=== PATIENT | female | born 1995 | race Caucasian/White ===

== ENCOUNTER 2016-09-16 16:08 | Emergency (ER) | payer OTHER ==
[~2016-09-16] VITALS: Ht 165.1 cm; Wt 90.7 kg
[~2016-09-16 16:08] MED LIST: AMOXICILLIN500 MG ORAL; LITHIUM CARBON300 MG ORAL; MINIPRESS1 MG PO; NORCO 5-325 TA1 EAC1 ORAL; PROMETHAZINE-D118 ML ORAL; SEROQUEL300 MG ORAL; SEROQUEL50 MG ORAL; SILVADENE CREAM50 GM TOP
[2016-09-16] MEDS ORDERED: MINIPRESS1 MG PO (16:15)
[2016-09-16] MEDS ORDERED: SERTRALINE HCL100 MG PO (16:15)
[2016-09-16] MEDS ORDERED: SEROQUEL200 MG ORAL (16:15)
[2016-09-16] MEDS ORDERED: DiphenhydrAMINE 50mg/ml Inj IVP ONE (16:15)
[2016-09-16] MEDS ORDERED: Solu-MEDROL 125mg Inj IVP ONE (16:15)
[2016-09-16 16:18] VITALS: BP 118/57
[2016-09-16 16:44] LABS: BASOPHILS % (AUTO) 0.8 % (0.0-2.0); EOSINOPHILS % (AUTO) 0.9 % (0.0-3.0); MEAN CORPUSCULAR HGB CONC 34.6 G/DL (32.0-36.0); MEAN CORPUSCULAR VOLUME 81 FL (80-99); MEAN PLATELET VOLUME 7.5 FL (6.5-10.1); MONOCYTES % (AUTO) 4.9 % (1.0-10.0); NEUTROPHILS % (AUTO) 64.5 % (45.0-75.0); PLATELET COUNT 221 K/UL (150-450); RED BLOOD COUNT 5.38 M/UL (4.20-5.40); RED CELL DISTRIBUTION WIDTH 11.1 % (11.6-14.8); WHITE BLOOD COUNT 9.7 K/UL (4.8-10.8)
[2016-09-16 17:01] LABS: TROPONIN I < 0.30 ng/mL (<=0.30)
[2016-09-16 17:03] LABS: ALANINE AMINOTRANSFERASE 11 U/L (3-33); ALBUMIN/GLOBULIN RATIO 1.6 (1.0-2.7); ANION GAP 14 (5-15); ASPARTATE AMINO TRANSFERASE 12 U/L (5-40); CARBON DIOXIDE 25 mEQ/L (20-30); CHLORIDE 100 mEQ/L (98-107); CREATININE 0.9 mg/dL (0.5-0.9); GLOMERULAR FILTRATION RATE > 60 mL/min (>60); HEMOLYSIS 17; POTASSIUM 4.3 mEQ/L (3.4-4.9); SODIUM 139 mEQ/L (135-145); TOTAL PROTEIN 6.6 g/dL (6.6-8.7)
[2016-09-16 17:30] VITALS: BP 105/88
[2016-09-16] MEDS ORDERED: SEROQUEL400 MG ORAL (18:22)
[2016-09-16] MEDS ORDERED: BENADRYL25 MG ORAL (18:22)
[2016-09-16] MEDS ORDERED: PREDNISONE20 MG ORAL (18:22)
[2016-09-16 18:28] VITALS: BP 103/57
--- NOTE | 2016-09-16 18:45 | Emergency Room Report ---
History of Present Illness General Chief Complaint: Allergic Reaction Source: Patient, Medical Record Present Illness HPI Patient presents with allergic reaction. For 3 hours her skin is to red and it' s itchy. She denies any shortness of breath nausea or dizziness. She's never been allergic to anything before. No new soaps, strange foods, exposure to animals, insect stings. No fever, URI, dysuria, joint pain, MANN, change in vision. No swelling of her throat or difficulty swallowing. H/O bipolar disorder. States stable and no SI or HI. Sober since last visit with me. She states she gets anxious and is concerned about other possible infectious causes of her rash (bed bugs, scabies). Allergies: Uncoded Allergies: BANANAS (Allergy, Mild, 12/10/15) Patient History Past Medical History: see triage record Social History: Reports: smoking Social History Narrative apartment by self Reviewed Nursing Documentation: PMH: Agreed, PSxH: Agreed Nursing Documentation-PMH Past Medical History: No History, Except For Review of Systems All Other Systems: negative except mentioned in HPI Physical Exam Vital Signs Date Time Temp Pulse Resp B/P Pulse Ox O2 Delivery O2 Flow Rate FiO2 09/16/16 16:08 97.9 80 16 115/80 99 Room Air Sp02 EP Interpretation: reviewed, normal General Appearance: well appearing, no apparent distress, GCS 15 Head: normocephalic Eyes: bilateral eye PERRL, bilateral eye normal inspection ENT: normal pharynx, no angioedema, moist mucus membranes, other - piercings Neck: full range of motion, supple Respiratory: chest non-tender, lungs clear, normal breath sounds Cardiovascular #1: regular rate, rhythm Cardiovascular #2: 2+ radial (R) Gastrointestinal: normal inspection, normal bowel sounds, non tender, no mass, non-distended Musculoskeletal: back normal, gait/station normal, normal range of motion Neurologic: alert, oriented x3, grossly normal Psychiatric: mood/affect normal, no suicidal/homicidal ideation Skin: warm/dry, rash - erythroderma more upper chest and extremities, minimal LE Medical Decision Making Diagnostic Impression: Primary Impression: Allergic reaction Qualified Codes: T78.40XA - Allergy, unspecified, initial encounter Additional Impression: Bipolar disorder Qualified Codes: F31.77 - Bipolar disorder, in partial remission, most recent episode mixed ER Course Patient with rash and itching. Ddx; allergic reaction, contact dermatitis, walters, medication reaction, urticaria. No evidence of scalded skin or Cyril Marcello syndrome. Labs indicated as is CXR. Labs unremarkable. Patient improved with treatment. She requests seroquel as won't see psych until 09/21. Patient stable for outpatient observation and treatment. Laboratory Tests Test 09/16/16 16:20 09/16/16 16:43 White Blood Count 9.7 K/UL (4.8-10.8) Red Blood Count 5.38 M/UL (4.20-5.40) Hemoglobin 15.1 G/DL (12.0-16.0) Hematocrit 43.6 % (37.0-47.0) Mean Corpuscular Volume 81 FL (80-99) Mean Corpuscular Hemoglobin 28.0 PG (27.0-31.0) Mean Corpuscular Hemoglobin Concent 34.6 G/DL (32.0-36.0) Red Cell Distribution Width 11.1 % (11.6-14.8) L Platelet Count 221 K/UL (150-450) Mean Platelet Volume 7.5 FL (6.5-10.1) Neutrophils (%) (Auto) 64.5 % (45.0-75.0) Lymphocytes (%) (Auto) 29.0 % (20.0-45.0) Monocytes (%) (Auto) 4.9 % (1.0-10.0) Eosinophils (%) (Auto) 0.9 % (0.0-3.0) Basophils (%) (Auto) 0.8 % (0.0-2.0) Sodium Level 139 mEQ/L (135-145) Potassium Level 4.3 mEQ/L (3.4-4.9) Chloride Level 100 mEQ/L (98-107) Carbon Dioxide Level 25 mEQ/L (20-30) Anion Gap 14 (5-15) Blood Urea Nitrogen 12 mg/dL (7-23) Creatinine 0.9 mg/dL (0.5-0.9) Estimate Glomerular Filtration Rate > 60 mL/min (>60) Glucose Level 135 mg/dL (74-106) H Calcium Level 9.0 mg/dL (8.6-10.2) Total Bilirubin 0.3 mg/dL (0.0-1.2) Aspartate Amino Transferase (AST) 12 U/L (5-40) Alanine Aminotransferase (ALT) 11 U/L (3-33) Alkaline Phosphatase 49 U/L (35-104) Total Creatine Kinase 53 U/L (26-140) Troponin I < 0.30 ng/mL (<=0.30) Total Protein 6.6 g/dL (6.6-8.7) Albumin 4.1 g/dL (3.5-5.2) Globulin 2.5 g/dL Albumin/Globulin Ratio 1.6 (1.0-2.7) Urine HCG, Qualitative Negative Urine Opiates Screen Negative (NEGATIVE) Urine Barbiturates Screen Negative (NEGATIVE) Phencyclidine (PCP) Screen Negative (NEGATIVE) Urine Amphetamines Screen Negative (NEGATIVE) Urine Benzodiazepines Screen Negative (NEGATIVE) Urine Cocaine Screen Negative (NEGATIVE) Urine Marijuana (THC) Screen Negative (NEGATIVE) EKG Diagnostic Results Rate: normal Rhythm: NSR ST Segments: no acute changes Rhythm Strip Diag. Results EP Interpretation: yes Rhythm: NSR, no PVC's, no ectopy Chest X-Ray Diagnostic Results EP Interpretation: Yes Findings: no consolidation, no effusion, no pneumothorax, no acute cardiopulmonary disease Number of Views: 1 Last Vital Signs Date Time Temp Pulse Resp B/P Pulse Ox O2 Delivery O2 Flow Rate FiO2 09/16/16 18:28 101 28 103/57 100 Room Air 09/16/16 16:18 97.8 Status: improved Disposition: HOME, SELF-CARE Condition: Improved Scripts Diphenhydramine Hcl* (BENADRYL*) 25 Mg Capsule 25 MG ORAL Q6H Y for Itching, #16 CAP Prov: Omer Posadas M.D. 09/16/16 Prednisone* (PREDNISONE*) 20 Mg Tablet 20 MG ORAL DAILY, #5 TAB 0 Refills Prov: Omer Posadas M.D. 09/16/16 Quetiapine Fumarate (SEROQUEL) 400 Mg Tablet 400 MG ORAL DAILY, #10 TAB 0 Refills Prov: Omer Posadas M.D. 09/16/16 Patient Instructions: Allergies Additional Instructions: See your medical doctor to look into what you might be allergic to. Return if you are worse. Try to look into what might have made this happen. Omer Posadas M.D. Sep 16, 2016 18:45
--- NOTE | 2016-09-17 10:45 | Diagnostic Imaging Report ---
Indication: DYSPNEA Technique: Single portable AP view of the chest. Findings: Comparison: 05/22/2016 The bones and extra pulmonary soft tissues, cardiomediastinal silhouette, pulmonary vasculature and parenchyma, and pleural surfaces remain unremarkable. IMPRESSION: Negative portable AP chest, unchanged.
--- NOTE | 2016-09-17 13:49 | Cardiology Report ---
APPROVED REPORT EKG Measurement Heart [id number] Normal sinus rhythm Lateral infarct, age undetermined Possible Inferior infarct, age undetermined Abnormal ECG
== END 2016-09-16 18:34 | disposition home or self-care (01) ==
LOC: EDBD 16:08 → EMR 17:00
DX: T78.40XA Allergy, unspecified, initial encounter (principal); X58.XXXA Exposure to other specified factors, initial encounter; R21 Rash and other nonspecific skin eruption; L29.9 Pruritus, unspecified; F17.200 Nicotine dependence, unspecified, uncomplicated; Z91.018 Allergy to other foods; F31.9 Bipolar disorder, unspecified
CPT/HCPCS: 36415; 71010; 80053; 80300; 81025; 82550; 84484; 85025; 93005; 96374; 96375; 99284; J1200; J2930